=== PATIENT | female | born 1965 | race Caucasian/White ===

== ENCOUNTER 2021-03-16 08:50 | Emergency (ER) | payer BC ==
--- NOTE | 2021-03-16 09:25 | EDM.PDOC ---
ED HPI GENERAL MEDICAL PROBLEM - General Chief Complaint: Back Pain or Injury Stated Complaint: BACK PAIN Time Seen by Provider: 03/16/21 09:14 - History of Present Illness INITIAL COMMENTS - FREE TEXT/NARRATIVE: 55-year-old female presents the emergency room with back pain. This is been going on for a little over a week now. Patient saw her primary provider in [place] who started her on Medrol dose pack Flexeril and ibuprofen. The patient took her Medrol Dosepak in the course of 3 days. She is using the Flexeril 10 mg 3 times a day and the ibuprofen 800 mg 3 times a day. And for the last couple of nights she is taking a Percocet at bedtime. She is really not getting any relief from this. Patient has had no loss of bowel or bladder control. Patient believes this started after picking up her grandchild early . - Related Data Allergies Allergy/AdvReac Type Severity Reaction Status Date / Time No Known Allergies Allergy Verified 03/16/21 09:14 Home Meds: Home Meds Cyclobenzaprine [Flexeril] 5 mg PO ASDIRECTED PRN 03/16/21 [History] Ezetimibe [Zetia] 10 mg PO DAILY 03/16/21 [History] carisoprodoL [Soma] 0 mg PO ASDIRECTED PRN 03/16/21 [History] methylPREDNISolone [Medrol Dose Pack] 4 mg PO ASDIRECTED 03/16/21 [History] oxyCODONE HCl/Acetaminophen [Percocet 5-325 mg Tablet] 1 each PO ASDIRECTED PRN 03/16/21 [History] ED ROS GENERAL - Review of Systems Review Of Systems: See Below Constitutional: Reports: No Symptoms HEENT: Reports: No Symptoms Respiratory: Reports: No Symptoms Cardiovascular: Reports: No Symptoms GI/Abdominal: Reports: No Symptoms Musculoskeletal: Reports: Back Pain (Back pain seems to be worse on the right compared to the left) Neurological: Reports: No Symptoms, Difficulty Walking (From the pain and muscle tightness the pain is localized to her back) ED EXAM, GENERAL - Physical Exam Exam: See Below Exam Limited By: Other (She is slow to move around because of back pain but exam could be done with the patient standing she does good standing and does okay when she is sitting or lying down it just takes her a long time to get into position) General Appearance: Alert, No Apparent Distress Respiratory/Chest: No Respiratory Distress, Lungs Clear, Normal Breath Sounds Cardiovascular: Regular Rate, Rhythm, No Edema, No Murmur Back Exam: Normal Inspection, Decreased Range of Motion, Muscle Spasm (Patient has marked muscle spasm especially in the right paraspinous muscles along the lumbar spine), Paraspinal Tenderness (Significant tenderness in the right paraspinous muscles along the lumbar spine extending into the lower thoracic spine), Other (Straight leg raises are negative for any neurologic symptoms she has pain in her buttocks especially on the right and her left she has pain radiating to the right her pain and discomfort does not extend below her buttocks.). No: Vertebral Tenderness Course - Vital Signs Last Recorded V/S: Last Vital Signs Temp 36.3 C 03/16/21 09:11 Pulse 78 03/16/21 09:11 Resp 14 03/16/21 09:11 BP 107/88 03/16/21 09:11 Pulse Ox 98 03/16/21 09:11 - Orders/Labs/Meds Meds: Medications Discontinued Medications Generic Name Dose Route Start Last Admin Trade Name Norberto PRN Reason Stop Dose Admin Ketorolac Tromethamine 30 mg 03/16/21 09:29 03/16/21 09:36 Ketorolac 30 Mg/Ml Sdv IM 03/16/21 09:30 30 mg ONETIME ONE Administration - Re-Assessments/Exams Free Text/Narrative Re-Assessment/Exam: 03/16/21 09:38 We will give 30 mg of IM Toradol see if we can get her some relief and since she has been on fairly aggressive therapy without any improvement I will go ahead and check some lumbar spine x-rays. 03/16/21 09:52 Patient refused lumbar x-rays. She did ask about further imaging such as an MRI and I informed her we generally do not do MRIs here in the emergency department. And at this point I am not sure it is indicated she is not having any radicular symptoms. 03/16/21 10:25 Apparently the patient left the department as she had an appointment in the clinic at 1030 she did receive the Toradol here in the department. Departure - Departure Time of Disposition: 10:26 Disposition: Eloped 07 Clinical Impression: Lumbosacral strain - Discharge Information Referrals: PCP,Not In Area [Primary Care Provider] - Forms: ED Department Discharge Sepsis Event Note (ED) - Evaluation Sepsis Screening Result: No Definite Risk - Focused Exam Vital Signs: Vital Signs Temp Pulse Resp BP Pulse Ox 03/16/21 09:11 36.3 C 78 14 107/88 98
[2021-03-16] MEDS ORDERED: Ketorolac 30 MG/ML SDV IM ONE (09:29)
== END 2021-03-16 10:25 | disposition left against medical advice (07) ==
LOC: JD.ED 08:50
DX: S39.012A Strain of muscle, fascia and tendon of lower back, initial encounter (principal); X58.XXXA Exposure to other specified factors, initial encounter
CPT/HCPCS: 96372; 99283; J1885

== ENCOUNTER 2022-03-13 10:35 | Emergency (ER) | payer BC | END 2022-03-13 13:16 | disposition home or self-care (01) | LOC: JD.ED 10:35 | DX: R07.89 Other chest pain (principal) | CPT/HCPCS: 36415; 71045; 71045-26; 80053; 84484; 85025; 85379; 85610; 93005; 93010; 99284; 99285-25 ==

== ENCOUNTER 2023-07-10 17:17 | Emergency (ER) | payer BC ==
[2023-07-10] MEDS ORDERED: methylPREDNISolone Sodium Succinate 40 MG/1 ML SDV IM ONE (17:46)
[2023-07-10] MEDS ORDERED: HYDROmorphone 1 MG/ML Syringe IM ONE (17:46)
[2023-07-10] MEDS ORDERED: Cyclobenzaprine 10 MG Tab PO ONE (17:46)
== END 2023-07-10 19:30 | disposition home or self-care (01) ==
LOC: JD.ED 17:17
DX: S39.012A Strain of muscle, fascia and tendon of lower back, initial encounter (principal); X50.0XXA Overexertion from strenuous movement or load, initial encounter
CPT/HCPCS: 96372; 99283; A9270; J1170; J2920; 99282